=== PATIENT | female | born 1980 | race Caucasian/White ===

== ENCOUNTER 2020-07-09 15:51 | Emergency (ER) | payer SELFPAY ==
--- NOTE | 2020-07-09 17:03 | RAD ---
2 views of the neck: 07/09/2020 COMPARISON: None HISTORY: Throat pain for 3 weeks FINDINGS: No discrete prevertebral soft tissue abnormality noted. The epiglottis appears normal. Ther e is disc space narrowing with anterior osteophyte formation at C5-6 and to a lesser degree, C4-5. There is multilevel mid cervical spine bilateral facet and uncovertebral osteophyte formation. No acu te osseous abnormality is seen. No radiopaque foreign body is seen on this exam. IMPRESSION: No acute findings. If symptoms persist, CT suggested.
== END 2020-07-09 17:20 | disposition home or self-care (01) ==
LOC: MADERS 15:51
DX: R07.0 Pain in throat (principal); I10 Essential (primary) hypertension; Z87.891 Personal history of nicotine dependence; Z79.899 Other long term (current) drug therapy
CPT/HCPCS: 70360